=== PATIENT | female | born 1990 | race Two or more races ===

== ENCOUNTER 2018-11-27 17:04 | Inpatient (IN) | payer OTHER ==
[~2018-11-27] VITALS: Ht 152.4 cm; Wt 2.3 kg
[~2018-11-27 17:04] MED LIST: PRENATABS FA T1 EACH PO
== END 2018-12-01 12:12 | disposition home or self-care (01) | DRG 785 ==
LOC: O/R 11-28 10:25 → OB/GYN 11-28 13:31
PROVIDERS: ADMIT Obstetrics & Gynecology
PROC: 0UL70ZZ Occlusion of Bilateral Fallopian Tubes, Open Approach (ICD-10-PCS; 2018-11-28)
PROC: 4A1HXCZ Monitoring of Products of Conception, Cardiac Rate, External Approach (ICD-10-PCS; 2018-11-28)
PROC: 10D00Z1 Extraction of Products of Conception, Low, Open Approach (ICD-10-PCS; principal; 2018-11-28 18:45)
DX: O82 Encounter for cesarean delivery without indication (principal); Z3A.38 38 weeks gestation of pregnancy; Z37.0 Single live birth; Z30.2 Encounter for sterilization